=== PATIENT | female | born 1980 | race Caucasian/White ===

== ENCOUNTER → 2017-01-29 | Outpatient (CLI) | payer OTHER ==
[~2017-01-29] MED LIST: CALC-20 PO; PREN1TAB29 PO
--- NOTE | 2017-01-29 11:17 | DIAGNOSTIC IMAGING REPORT ---
COMP>14 WEEKS SINGLE CLINICAL HISTORY: 23 WK [facility] [place] FOR SCREENING COMPARISON STUDY: No previous studies for comparison. FINDINGS: A single live fetus in cephalic presentation was visualized. The placenta was posterior. The anatomic fluid index was 13.2 cm. The heart rate was 145. The maternal cervical length measured 4.7 cm. The BPD averages 57 mm, the head circumference 215 mm, the abdominal circumference 199 mm, and the femur 42 mm. These measurements correspond to an estimated postmenstrual age of 23 weeks 3 days +/- 1 week. The estimated date of A four-chamber heart view could not be obtained. stomach, and 2 kidneys were visualized. The anterior abdominal wall is unremarkable in appearance. A bladder was visualized. No definite spine abnormalities were identified however visualization was somewhat limited, particularly in the transverse view.. There is no hydrocephalus. Imaging of the posterior fossa was rather limited. A three-vessel cord view was not obtained. Delivery is May 25, 2017. No images of the hands or feet were acquired. IMPRESSION: 1. Single live fetus in cephalic presentation. The estimated postmenstrual age is 23 weeks 3 days +/- 1 week. 2. Technically limited study with limited visualization of anatomy. No abnormalities identified. Electronically signed by: Renan Donis M.D. 01/29/2017 11:16 AM Dictated Date/Time: 01/29/2017 10:40 AM
== END | disposition home or self-care (01) ==
LOC: C.ULTR 08:44
PROVIDERS: ATTEND Obstetrics & Gynecology
DX: Z36 Encounter for antenatal screening of mother (principal)